=== PATIENT | female | born 1935 | race Caucasian/White ===

== ENCOUNTER → 2016-11-16 | Outpatient (CLI) | payer OTHER ==
--- NOTE | 2016-11-19 07:09 | MG ---
Examination: Bilateral screening mammogram. Clinical history: Routine screening. Technique: Digital CC and MLO views of both breasts were obtained. Computer aided detection analysis was performed and used during the interpretation. Comparison: 11/14/2015. Findings: The breasts are composed of scattered fibroglandular densities. Benign-appearing calcifications and v ascular calcifications are noted in the breasts bilaterally. Stable small intramammary lymph nodes ar e present in the upper outer aspect of the right breast. A skin mole is present overlying the left br east. No suspicious mass, area of architectural distortion or suspicious cluster of microcalcifications is noted. Impression: 1. No mammographic evidence of malignancy. BI-RADS category 2-benign findings. Recommend routine annual screening mammogram. Diagnostic CAD was utilized and reviewed. * 0 (ZERO) - ASSESSMENT INCOMPLETE; ADDITIONAL IMAGING IS NEEDED. * 0C - ASSESSMENT INCOMPLETE, NEEDS ADDITIONAL IMAGING EVALUATION AND/OR PRIOR MAMMOGRAMS FOR COMPARI SON. * 1/1 (ONE) - NEGATIVE. * 2/II (TWO) - BENIGN FINDINGS. * 3/III (THREE) - PROBABLY BENIGN FINDING; SHORT INTERVAL FOLLOW-UP SUGGESTED. * 4/IV (FOUR) - SUSPICIOUS ABNORMALITY; BIOPSY SHOULD BE CONSIDERED. * 5/V - HIGHLY SUSPICIOUS OF MALIGNANCY; BIOPSY SHOULD BE PERFORMED. * 6/IV - KNOWN BIOPSY PROVEN MALIGNANCY-APPROPRIATE ACTION SHOULD BE TAKEN. A NEGATIVE X-RAY REPORT SHOULD NOT DELAY BIOPSY IF A DOMINANT OR CLINICALLY SUSPICIOUS MASS IS PRESENT; 4 TO 8 PERCENT OF CANCERS ARE NOT IDENTIFIED BY X-RAY. A NEGATIVE REPORT MAY REINFORCE THE CLINICAL IMPRESSION. ADENOSIS AND DENSE BREASTS MAY OBSCURE AN UNDERLYING NEOPLASM. Reported By:
== END ==
LOC: RAD 09:36
PROVIDERS: ATTEND Specialist
DX: Z12.31 Encounter for screening mammogram for malignant neoplasm of breast (principal)
CPT/HCPCS: 77067